=== PATIENT | female | born 1955 | race African-American/Black ===

== ENCOUNTER → 2021-01-01 | Day surgery (SDC) | payer OTHER | END | disposition home or self-care (01) | LOC: JRADIR 09:31 | PROVIDERS: ATTEND Internal Medicine Endocrinology, Diabetes & Metabolism | PROC: 0G9K3ZX Drainage of Thyroid Gland, Percutaneous Approach, Diagnostic (ICD-10-PCS; principal; 2021-01-01) | DX: E04.1 Nontoxic single thyroid nodule (principal) | CPT/HCPCS: 10005; 76942 ==

== ENCOUNTER 2023-03-26 04:36 | Day surgery (SDC) | payer OTHER ==
[2023-03-23 12:24] VITALS: BMI 20.2
[2023-03-26 11:31] VITALS: TEMP 97.2
[2023-03-26 12:25] VITALS: BP 165/71; PULSE 64; RESP 17
== END 2023-03-26 12:50 | disposition home or self-care (01) ==
LOC: JASU-ENDO 04:36
PROVIDERS: ATTEND Internal Medicine Gastroenterology
PROC: 0DB78ZX Excision of Stomach, Pylorus, Via Natural or Artificial Opening Endoscopic, Diagnostic (ICD-10-PCS; 2023-03-26)
PROC: 0DBK8ZX Excision of Ascending Colon, Via Natural or Artificial Opening Endoscopic, Diagnostic (ICD-10-PCS; principal; 2023-03-26 10:00)
DX: Z12.11 Encounter for screening for malignant neoplasm of colon (principal); K63.5 Polyp of colon; K64.8 Other hemorrhoids; K29.50 Unspecified chronic gastritis without bleeding; Z80.0 Family history of malignant neoplasm of digestive organs; K59.89 Other specified functional intestinal disorders; I10 Essential (primary) hypertension; R63.4 Abnormal weight loss
CPT/HCPCS: 88305-TC; 88342-TC